=== PATIENT | male | born 1995 | race Caucasian/White ===

== ENCOUNTER 2018-08-08 15:47 | Emergency (ER) | payer MEDICAID ==
[~2018-08-08] VITALS: Ht 182.9 cm; Wt 55.0 kg
[~2018-08-08 15:47] MED LIST: CITA20TA19; trazadone
[2018-08-08] MEDS ORDERED: ACETAMINOPHEN 325MG TABLET PO STA (16:01)
[2018-08-08] MEDS ORDERED: LORAZEPAM 2MG/ML CPJ IV STA (16:01)
[2018-08-08] MEDS ORDERED: SODIUM CHLORIDE 0.9% 1,000 ML IV ONE (16:01)
[2018-08-08 17:08] LABS: BASOPHILS % 0.1 % (0.0-2.0); EOSINOPHILS % 0.1 % (0.0-5.0); HEMATOCRIT. 41.6 % (42.0-52.0); HEMOGLOBIN. 14.5 g/dL (14.0-18.0); LYMPHOCYTES % 7.1 % (20.0-50.0); MEAN CORPUSCULAR HEMOGLOBIN 32.7 pg (28.0-32.0); MEAN CORPUSCULAR VOLUME 93.7 fL (80.0-94.0); MEAN PLATELET VOLUME 8.5 fl (7.4-10.4); NEUTROPHILS % 89.7 % (40.0-76.0); PLATELET 208 x1000/uL (130-400); RED BLOOD CELL COUNT 4.44 mill/uL (4.7-6.1); RED CELL DISTRIBUTION WIDTH 12.7 % (11.6-14.6)
[2018-08-08 17:11] LABS: CHLORIDE 106 mEq/L (98-107)
[2018-08-08 17:16] LABS: ETHANOL BLOOD < 10 mg/dL
[2018-08-08 20:06] LABS: CLARITY URINE CLEAR (CLEAR); COLOR URINE YELLOW (YELLOW); KETONES URINE NEGATIVE (NEGATIVE); LEUKOCYTE ESTERASE URINE NEGATIVE (NEGATIVE); NITRITE URINE NEGATIVE (NEGATIVE); OCCULT BLOOD URINE NEGATIVE (NEGATIVE); PH URINE 7.5 (4.5-8.0); PROTEIN URINE NEGATIVE (NEGATIVE); SPECIFIC GRAVITY URINE 1.013 (1.005-1.030); UROBILINOGEN URINE 0.2 E.U./dL (0.2-1.0)
[2018-08-08 20:18] LABS: *AMPHETAMINES SCREEN URINE NEGATIVE (NEGATIVE); *BARBITURATES SCREEN URINE NEGATIVE (NEGATIVE); *BENZODIAZEPINES SCREEN URINE NEGATIVE (NEGATIVE)
[2018-08-08 20:19] LABS: *COCAINE SCREEN URINE NEGATIVE (NEGATIVE); CANNABINOID URINE SCREEN PRESUMTIVE POSITIVE (NEGATIVE); METHADONE URINE SCREEN NEGATIVE (NEGATIVE); OPIATES URINE SCREEN NEGATIVE (NEGATIVE); PHENCYCLIDINE URINE SCREEN NEGATIVE (NEGATIVE)
[2018-08-09 14:15] VITALS: BP 126/78
== END 2018-08-09 14:30 ==
LOC: ER 15:47
DX: T40.7X2A Poisoning by cannabis (derivatives), intentional self-harm, initial encounter (principal); R45.851 Suicidal ideations; R11.10 Vomiting, unspecified; F41.9 Anxiety disorder, unspecified; F32.9 Major depressive disorder, single episode, unspecified; R42 Dizziness and giddiness; Y92.89 Other specified places as the place of occurrence of the external cause
CPT/HCPCS: 36415; 71045; 80053; 80305; 80307; 80320; 80329; 81003; 85025; 96361; 96374; 99285; J2060; J7030; G0480

== ENCOUNTER 2019-10-25 14:24 | Emergency (ER) | payer SELFPAY ==
[~2019-10-25] VITALS: Ht 172.7 cm; Wt 64.0 kg
[2019-10-25] MEDS ORDERED: HALOPERIDOL LACTATE 5MG/ML VIAL IM STA (14:42)
[2019-10-25] MEDS ORDERED: LORAZEPAM 2MG/ML CPJ IM STA (14:42)
[2019-10-25 15:14] LABS: HEMOGLOBIN. 17.6 g/dL (14.0-18.0); MEAN CORPUSCULAR HEMOGLOBIN 33.1 pg (28.0-32.0); MEAN CORPUSCULAR VOLUME 95.9 fL (80.0-94.0); MEAN PLATELET VOLUME 9.5 fl (7.4-10.4); PLATELET 292 x1000/uL (130-400); RED BLOOD CELL COUNT 5.33 mill/uL (4.7-6.1); RED CELL DISTRIBUTION WIDTH 12.8 % (11.6-14.6)
[2019-10-25 15:17] LABS: CHLORIDE 104 mEq/L (98-107)
[2019-10-25 15:22] LABS: ETHANOL BLOOD < 10 mg/dL
[2019-10-25] MEDS ORDERED: SODIUM CHLORIDE 0.9% 1,000 ML IV ONE (16:00)
[2019-10-25 17:20] LABS: CLARITY URINE CLEAR (CLEAR); COLOR URINE DARK YELLOW (YELLOW); KETONES URINE TRACE (NEGATIVE); LEUKOCYTE ESTERASE URINE TRACE (NEGATIVE); NITRITE URINE NEGATIVE (NEGATIVE); OCCULT BLOOD URINE 3+ (NEGATIVE); PH URINE 5.5 (4.5-8.0); PROTEIN URINE 2+ (NEGATIVE); SPECIFIC GRAVITY URINE 1.022 (1.005-1.030)
[2019-10-25 17:44] LABS: *AMPHETAMINES SCREEN URINE NEGATIVE (NEGATIVE); *BARBITURATES SCREEN URINE NEGATIVE (NEGATIVE); *BENZODIAZEPINES SCREEN URINE NEGATIVE (NEGATIVE)
[2019-10-25 17:45] LABS: *COCAINE SCREEN URINE NEGATIVE (NEGATIVE); CANNABINOID URINE SCREEN PRESUMTIVE POSITIVE (NEGATIVE); METHADONE URINE SCREEN NEGATIVE (NEGATIVE); OPIATES URINE SCREEN PRESUMTIVE POSITIVE (NEGATIVE); PHENCYCLIDINE URINE SCREEN PRESUMTIVE POSITIVE (NEGATIVE)
[2019-10-25 20:18] LABS: PLATELET ESTIMATE NORMAL
[2019-10-26 15:30] VITALS: BP 128/83
== END 2019-10-26 15:50 | disposition home or self-care (01) ==
LOC: ER 14:33
DX: R45.1 Restlessness and agitation (principal); F41.9 Anxiety disorder, unspecified; F32.9 Major depressive disorder, single episode, unspecified; F12.10 Cannabis abuse, uncomplicated
CPT/HCPCS: 36415; 80053; 80305; 80307; 80320; 80329; 81003; 85025; 96372; 99285; J1630; J2060; J7030; G0480

== ENCOUNTER 2021-01-25 23:34 | Emergency (ER) | payer MEDICAID ==
[~2021-01-25] VITALS: Ht 170.2 cm; Wt 73.0 kg
[2021-01-26] MEDS ORDERED: SODIUM CHLORIDE 0.9% 1,000 ML IV ONE
[2021-01-26 00:25] LABS: BASOPHILS % 0.4 % (0.0-2.0); EOSINOPHILS % 0.1 % (0.0-5.0); HEMOGLOBIN. 14.9 g/dL (14.0-18.0); LYMPHOCYTES % 15.6 % (20.0-50.0); MEAN CORPUSCULAR HEMOGLOBIN 32.8 pg (28.0-32.0); MEAN CORPUSCULAR VOLUME 92.7 fL (80.0-94.0); MEAN PLATELET VOLUME 9.1 fl (7.4-10.4); MONOCYTES % 3.2 % (2.0-8.0); NEUTROPHILS % 80.7 % (40.0-76.0); PLATELET 235 x1000/uL (130-400); RED BLOOD CELL COUNT 4.53 mill/uL (4.7-6.1); RED CELL DISTRIBUTION WIDTH 12.7 % (11.6-14.6)
[2021-01-26] MEDS ORDERED: ONDANSETRON HCL 4MG/2ML INJ IV ONE (00:45)
[2021-01-26 01:02] LABS: CHLORIDE 104 mEq/L (98-107)
[2021-01-26 01:09] LABS: ETHANOL BLOOD < 10 mg/dL
[2021-01-26 01:11] LABS: CLARITY URINE CLEAR (CLEAR); COLOR URINE YELLOW (YELLOW); KETONES URINE NEGATIVE (NEGATIVE); LEUKOCYTE ESTERASE URINE NEGATIVE (NEGATIVE); NITRITE URINE NEGATIVE (NEGATIVE); OCCULT BLOOD URINE NEGATIVE (NEGATIVE); PH URINE 7.5 (4.5-8.0); PROTEIN URINE NEGATIVE (NEGATIVE); SPECIFIC GRAVITY URINE 1.021 (1.005-1.030)
[2021-01-26 01:12] LABS: CREATINE KINASE 93 IU/L (39-308)
[2021-01-26 01:48] LABS: *AMPHETAMINES SCREEN URINE NEGATIVE (NEGATIVE)
[2021-01-26 01:49] LABS: *BARBITURATES SCREEN URINE NEGATIVE (NEGATIVE); *BENZODIAZEPINES SCREEN URINE NEGATIVE (NEGATIVE); *COCAINE SCREEN URINE NEGATIVE (NEGATIVE); METHADONE URINE SCREEN NEGATIVE (NEGATIVE); OPIATES URINE SCREEN NEGATIVE (NEGATIVE); PHENCYCLIDINE URINE SCREEN NEGATIVE (NEGATIVE)
[2021-01-26 01:50] LABS: CANNABINOID URINE SCREEN PRESUMTIVE POSITIVE (NEGATIVE)
[2021-01-26 02:33] LABS: CHLORIDE 108 mEq/L (98-107)
[2021-01-26] MEDS: OLANZAPINE 5MG TABLET ODT PO SCH ×2 (09:13→17:10)
[2021-01-26] MEDS ORDERED: DIPHENHYDRAMINE 50MG/ML VIAL IM STA (20:32)
[2021-01-26] MEDS ORDERED: HALOPERIDOL LACTATE 5MG/ML VIAL IM STA (20:32)
[2021-01-26] MEDS ORDERED: LORAZEPAM 2MG/ML CPJ IM STA (20:32)
[2021-01-27] MEDS: OLANZAPINE 5MG TABLET ODT PO SCH (09:39)
[2021-01-27 15:00] VITALS: BP 134/86
== END 2021-01-27 16:00 | disposition home or self-care (01) ==
LOC: ER 23:34
DX: T65.91XA Toxic effect of unspecified substance, accidental (unintentional), initial encounter (principal); F12.90 Cannabis use, unspecified, uncomplicated; R45.851 Suicidal ideations; I49.9 Cardiac arrhythmia, unspecified; Z20.822 Contact with and (suspected) exposure to COVID-19; Y92.9 Unspecified place or not applicable
CPT/HCPCS: 93005; 96372; 96374; 99285; J1200; J1630; J2060; J2405; J7030

== ENCOUNTER 2021-01-30 12:18 | Inpatient (IN) | payer MEDICAID ==
[~2021-01-30] VITALS: Ht 182.9 cm; Wt 57.8 kg
[~2021-01-30 12:18] MED LIST changes: +ETOMIDATE 2MG/ML 10ML VIAL IV ONE; +SODIUM CHLORIDE 0.9% 10ML VIAL ONE; +VECURONIUM BROMIDE 10 MG/VIAL IV ONE
[2021-01-30] MEDS ORDERED: LORAZEPAM 2MG/ML CPJ IV STA (12:42)
[2021-01-30] MEDS ORDERED: SODIUM CHLORIDE 0.9% 1,000 ML IV ONE ×2 (12:45→19:15)
[2021-01-30] MEDS ORDERED: NALOXONE HCL 0.4 MG/ML 1ML VIAL IV PRN (12:45)
[2021-01-30] MEDS ORDERED: PROPOFOL 10MG/ML 100ML 100 ML IV ONE (13:00)
[2021-01-30] MEDS ORDERED: LORAZEPAM 2MG/ML CPJ IV ONE (13:00)
[2021-01-30] MEDS ORDERED: LEVETIRACETAM 500MG PREMIX 100 ML IV ONE (13:00)
[2021-01-30] MEDS ORDERED: FENTANYL CITRATE/PF 1,000 MCG in SODIUM CHLORIDE 0.9% 80 ML IV PRN (13:00)
[2021-01-30] MEDS ORDERED: LEVETIRACETAM 2,000 MG in SODIUM CHLORIDE 0.9% 100 ML IV NR (13:00)
[2021-01-30] MEDS ORDERED: ETOMIDATE 2MG/ML 10ML VIAL IV ONE (13:00)
[2021-01-30] MEDS ORDERED: VANCOMYCIN 1 G PREMIX 200 ML IV SCH (13:15)
[2021-01-30] MEDS ORDERED: PIPERACILLIN/TAZOBACTAM 3.375GM/50ML PREMIX IV NR (13:15)
[2021-01-30 13:43] LABS: HEMATOCRIT. 47.1 % (42.0-52.0); HEMOGLOBIN. 15.9 g/dL (14.0-18.0); MEAN CORPUSCULAR HEMOGLOBIN 32.3 pg (28.0-32.0); MEAN CORPUSCULAR VOLUME 95.6 fL (80.0-94.0); MEAN PLATELET VOLUME 9.7 fl (7.4-10.4); PLATELET 163 x1000/uL (130-400); RED BLOOD CELL COUNT 4.93 mill/uL (4.7-6.1); RED CELL DISTRIBUTION WIDTH 12.9 % (11.6-14.6)
[2021-01-30 13:49] LABS: CLARITY URINE CLEAR (CLEAR); COLOR URINE YELLOW (YELLOW); KETONES URINE TRACE (NEGATIVE); LEUKOCYTE ESTERASE URINE NEGATIVE (NEGATIVE); NITRITE URINE NEGATIVE (NEGATIVE); OCCULT BLOOD URINE 3+ (NEGATIVE); PH URINE 5.5 (4.5-8.0); PROTEIN URINE 1+ (NEGATIVE); SPECIFIC GRAVITY URINE 1.011 (1.005-1.030)
[2021-01-30 14:17] LABS: PLATELET ESTIMATE NORMAL
[2021-01-30 14:19] LABS: CHLORIDE 102 mEq/L (98-107)
[2021-01-30 14:20] LABS: INR 1.2
[2021-01-30 14:24] LABS: ETHANOL BLOOD < 10 mg/dL
[2021-01-30 14:27] LABS: LDL CHOLESTEROL 82 mg/dL (5-100)
[2021-01-30 14:28] LABS: HDL CHOLESTEROL 52 mg/dL (40-59)
[2021-01-30] MEDS ORDERED: FUROSEMIDE 100MG/10ML VIAL IV STA (14:34)
[2021-01-30 14:42] LABS: OPIATES URINE SCREEN NEGATIVE (NEGATIVE); PHENCYCLIDINE URINE SCREEN NEGATIVE (NEGATIVE)
[2021-01-30 14:43] LABS: *AMPHETAMINES SCREEN URINE NEGATIVE (NEGATIVE); *BARBITURATES SCREEN URINE NEGATIVE (NEGATIVE); *BENZODIAZEPINES SCREEN URINE NEGATIVE (NEGATIVE); *COCAINE SCREEN URINE NEGATIVE (NEGATIVE); CANNABINOID URINE SCREEN PRESUMTIVE POSITIVE (NEGATIVE); METHADONE URINE SCREEN NEGATIVE (NEGATIVE)
[2021-01-30] MEDS ORDERED: SODIUM CHLORIDE 0.9% 1000ML BAG (SEPSIS BOLUS) IV ONE (14:45)
[2021-01-30] MEDS ORDERED: ALBUTEROL (0.083%) 2.5MG/3ML NEB HHN ONE (14:45)
[2021-01-30] MEDS ORDERED: CALCIUM GLUCONATE 100MG/ML 10ML VIAL IV ONE (14:45)
[2021-01-30] MEDS ORDERED: INSULIN REGULAR (HUMULIN R) 300UNITS/3ML VIAL IV ONE (14:45)
[2021-01-30] MEDS ORDERED: CALCIUM CHLORIDE 1GM/10ML SYR IV ONE (14:45)
[2021-01-30] MEDS ORDERED: DEXTROSE 50% WATER 50ML SYRINGE IV ONE (14:45)
[2021-01-30] MEDS ORDERED: PIPERACILLIN/TAZOBACTAM 3.375 G in DEXTROSE 5% WATER 50 ML IV SCH (15:45)
[2021-01-30] MEDS ORDERED: PROPOFOL 10MG/ML 100ML 100 ML IV PRN (16:00)
[2021-01-30] MEDS: ENOXAPARIN 30MG/0.3ML SYR SUBCUT SCH (16:00)
[2021-01-30] MEDS: PANTOPRAZOLE SODIUM 40 MG/VIAL IV SCH (17:55)
[2021-01-30] MEDS: DEXT 5%/0.45% NACL 1000ML 1,000 ML IV SCH (17:56)
[2021-01-30 18:04] LABS: BG BASE EXCESS -7.2 mmol/L (-2.0-2.0); BG CARBOXYHEMOGLOBIN 0.3 % (0.5-1.5); BG DEOXYHEMOGLOBIN 0.4 % (0.0-5.0); BG FRACTION INSPIRED OXYGEN 18; BG HCO3 ACT 21.5 mmol/L (22.0-26.0); BG METHEMOGLOBIN 0.6 % (0.0-1.5); BG OXYGEN SATURATION 99.6 % (92.0-98.5); BG OXYHEMOGLOBIN 98.7 % (94.0-97.0); BG PCO2 55.2 mmHg (35.0-45.0); BG PH 7.209 (7.350-7.450); BG PO2 471.1 mmHg (75.0-100.0); BG SAMPLE SITE RIGHT RADIAL; BG TOTAL HEMOGLOBIN 17.4 g/dL (12.0-18.0); BG VENT MODE VENT - AC
[2021-01-30 18:08] LABS: CHLORIDE 103 mEq/L (98-107)
[2021-01-30] MEDS ORDERED: FENTANYL CITRATE/PF 50MCG/ML 2ML VIAL IV ONE (19:45)
[2021-01-30] MEDS ORDERED: FENTANYL CITRATE 2,500 MCG in SODIUM CHLORIDE 0.9% 200 ML IV PRN (19:45)
[2021-01-30 20:05] LABS: CREATINE KINASE 7600 IU/L (39-308)
[2021-01-30 21:28] LABS: HEPATITIS B SURFACE ANTIGEN NEGATIVE
[2021-01-30] MEDS ORDERED: SODIUM CHLORIDE 0.9% 100 ML IV ONE (22:30)
[2021-01-30] MEDS ORDERED: LEVETIRACETAM 500MG PREMIX 100 ML IV NR (23:00)
[2021-01-30] MEDS ORDERED: KETOROLAC 15MG/ML VIAL IV PRN (23:05)
[2021-01-30] MEDS: SODIUM BICARBONATE 100 MEQ in SODIUM CHLORIDE 0.45% 1,000 ML IV SCH (23:09)
[2021-01-30] MEDS: PIPERACILLIN/TAZOBACTAM 3.375G in DEXT 5% WATER 50ML IV SCH (23:09)
[2021-01-31] VITALS (61 sets, daily range): BP systolic 52–129; BP diastolic 27–118
[2021-01-31] MEDS: PHENYLEPHRINE 100 MG in DEXT 5% WATER 250 ML IV PRN (00:23)
[2021-01-31 00:33] LABS: CREATINE KINASE 4143 IU/L (39-308)
[2021-01-31] MEDS: DEXT 5%/0.45% NACL 1000ML 1,000 ML IV SCH ×2 (04:00→13:04)
[2021-01-31] MEDS: SODIUM BICARBONATE 100 MEQ in SODIUM CHLORIDE 0.45% 1,000 ML IV SCH (04:20)
[2021-01-31] MEDS: PIPERACILLIN/TAZOBACTAM 3.375G in DEXT 5% WATER 50ML IV SCH ×3 (06:28→22:40)
[2021-01-31] MEDS ORDERED: PROPOFOL 10MG/ML 100ML 100 ML IV ONE (07:00)
[2021-01-31] MEDS: PANTOPRAZOLE SODIUM 40 MG/VIAL IV SCH (09:44)
[2021-01-31 10:01] LABS: HEMATOCRIT. 39.2 % (42.0-52.0); HEMOGLOBIN. 13.9 g/dL (14.0-18.0); MEAN CORPUSCULAR HEMOGLOBIN 32.2 pg (28.0-32.0); MEAN CORPUSCULAR VOLUME 91.1 fL (80.0-94.0); MEAN PLATELET VOLUME 8.9 fl (7.4-10.4); PLATELET 151 x1000/uL (130-400); RED BLOOD CELL COUNT 4.31 mill/uL (4.7-6.1)
[2021-01-31 10:10] LABS: CHLORIDE 105 mEq/L (98-107)
[2021-01-31 10:42] LABS: PLATELET ESTIMATE NORMAL
[2021-01-31 10:56] LABS: BG BASE EXCESS 6.3 mmol/L (-2.0-2.0); BG CARBOXYHEMOGLOBIN 0.3 % (0.5-1.5); BG DEOXYHEMOGLOBIN 1.2 % (0.0-5.0); BG FRACTION INSPIRED OXYGEN 50; BG HCO3 ACT 31.1 mmol/L (22.0-26.0); BG METHEMOGLOBIN 0.6 % (0.0-1.5); BG OXYGEN SATURATION 98.8 % (92.0-98.5); BG OXYHEMOGLOBIN 97.9 % (94.0-97.0); BG PH 7.457 (7.350-7.450); BG PO2 195.9 mmHg (75.0-100.0); BG SAMPLE SITE LEFT RADIAL; BG TOTAL HEMOGLOBIN 13.7 g/dL (12.0-18.0); BG TOTAL RESPIRATORY RATE 18 b/min; BG VENT MODE VENT - AC
[2021-01-31] MEDS ORDERED: LEVETIRACETAM 500 MG in SODIUM CHLORIDE 0.9% 100 ML IV SCH (11:00)
[2021-01-31] MEDS: LEVETIRACETAM 500MG PREMIX 100 ML IV SCH ×2 (12:32→20:43)
[2021-01-31 12:42] LABS: CREATINE KINASE 7887 IU/L (39-308)
[2021-01-31] MEDS: CHLORDIAZEPOXIDE 10MG CAPSULE PO SCH ×2 (13:02→22:25)
[2021-01-31] MEDS: THIAMINE HCL 100MG TABLET PO SCH (13:03)
[2021-01-31] MEDS: MULTIVITAMINS,THER W-MINERALS TABLET PO SCH (13:03)
[2021-01-31] MEDS: FOLIC ACID 1MG TABLET PO SCH (13:03)
[2021-01-31] MEDS: CHLORDIAZEPOXIDE 5 MG CAPSULE PO SCH ×2 (13:03→22:25)
[2021-01-31] MEDS: ENOXAPARIN 30MG/0.3ML SYR SUBCUT SCH (18:09)
[2021-01-31] MEDS: PROPOFOL 10MG/ML 100ML 100 ML IV PRN (18:11)
[2021-02-01] VITALS (91 sets, daily range): BP systolic 75–148; BP diastolic 16–96
[2021-02-01] MEDS: DEXT 5%/0.45% NACL 1000ML 1,000 ML IV SCH ×3 (00:49→18:45)
[2021-02-01] MEDS: CHLORDIAZEPOXIDE 5 MG CAPSULE PO SCH ×3 (05:50→21:50)
[2021-02-01] MEDS: CHLORDIAZEPOXIDE 10MG CAPSULE PO SCH ×3 (05:50→21:50)
[2021-02-01] MEDS: PIPERACILLIN/TAZOBACTAM 3.375G in DEXT 5% WATER 50ML IV SCH ×3 (05:51→21:51)
[2021-02-01] MEDS: PROPOFOL 10MG/ML 100ML 100 ML IV PRN ×3 (07:41→20:25)
[2021-02-01 08:06] LABS: HEMATOCRIT. 37.2 % (42.0-52.0); HEMOGLOBIN. 13.3 g/dL (14.0-18.0); MEAN CORPUSCULAR HEMOGLOBIN 32.9 pg (28.0-32.0); MEAN CORPUSCULAR VOLUME 92.2 fL (80.0-94.0); MEAN PLATELET VOLUME 10.6 fl (7.4-10.4); PLATELET 130 x1000/uL (130-400); RED BLOOD CELL COUNT 4.04 mill/uL (4.7-6.1); RED CELL DISTRIBUTION WIDTH 12.8 % (11.6-14.6)
[2021-02-01 08:09] LABS: CHLORIDE 108 mEq/L (98-107)
[2021-02-01] MEDS: FOLIC ACID 1MG TABLET PO SCH (08:36)
[2021-02-01] MEDS: MULTIVITAMINS,THER W-MINERALS TABLET PO SCH (08:36)
[2021-02-01] MEDS: PANTOPRAZOLE SODIUM 40 MG/VIAL IV SCH (08:36)
[2021-02-01] MEDS: THIAMINE HCL 100MG TABLET PO SCH (08:36)
[2021-02-01] MEDS: LEVETIRACETAM 500MG PREMIX 100 ML IV SCH ×2 (08:36→20:26)
[2021-02-01 08:46] LABS: CREATINE KINASE 6125 IU/L (39-308)
[2021-02-01 09:21] LABS: BG BASE EXCESS 0.5 mmol/L (-2.0-2.0); BG CARBOXYHEMOGLOBIN 0.3 % (0.5-1.5); BG DEOXYHEMOGLOBIN 0.9 % (0.0-5.0); BG FRACTION INSPIRED OXYGEN 505; BG HCO3 ACT 25.2 mmol/L (22.0-26.0); BG METHEMOGLOBIN 0.4 % (0.0-1.5); BG OXYGEN SATURATION 99.1 % (92.0-98.5); BG OXYHEMOGLOBIN 98.4 % (94.0-97.0); BG PCO2 40.8 mmHg (35.0-45.0); BG PH 7.409 (7.350-7.450); BG SAMPLE SITE LEFT RADIAL; BG TOTAL HEMOGLOBIN 13.8 g/dL (12.0-18.0); BG TOTAL RESPIRATORY RATE 18 b/min; BG VENT MODE VENT - AC
[2021-02-01] MEDS: ACETAMINOPHEN 325MG TABLET PO PRN (10:08)
[2021-02-01 11:45] LABS: PLATELET ESTIMATE NORMAL
[2021-02-01] MEDS: ENOXAPARIN 30MG/0.3ML SYR SUBCUT SCH (16:57)
[2021-02-02] VITALS (79 sets, daily range): BP systolic 90–162; BP diastolic 40–112
[2021-02-02] MEDS: ACETAMINOPHEN 325MG TABLET PO PRN ×2 (00:01→17:32)
[2021-02-02] MEDS: FENTANYL CITRATE/PF 2,500 MCG in SODIUM CHLORIDE 0.9% 200 ML IV PRN ×2 (01:55→20:55)
[2021-02-02] MEDS: PROPOFOL 10MG/ML 100ML 100 ML IV PRN ×2 (02:19→08:16)
[2021-02-02] MEDS: DEXT 5%/0.45% NACL 1000ML 1,000 ML IV SCH ×2 (03:09→17:05)
[2021-02-02] MEDS: PIPERACILLIN/TAZOBACTAM 3.375G in DEXT 5% WATER 50ML IV SCH ×3 (05:25→21:32)
[2021-02-02] MEDS: CHLORDIAZEPOXIDE 5 MG CAPSULE PO SCH ×4 (05:25→21:50)
[2021-02-02] MEDS: CHLORDIAZEPOXIDE 10MG CAPSULE PO SCH ×2 (05:26→13:17)
[2021-02-02 05:30] LABS: HEMATOCRIT. 41.8 % (42.0-52.0); HEMOGLOBIN. 14.7 g/dL (14.0-18.0); MEAN CORPUSCULAR HEMOGLOBIN 32.7 pg (28.0-32.0); MEAN CORPUSCULAR VOLUME 93.1 fL (80.0-94.0); MEAN PLATELET VOLUME 9.3 fl (7.4-10.4); PLATELET 149 x1000/uL (130-400); RED BLOOD CELL COUNT 4.49 mill/uL (4.7-6.1); RED CELL DISTRIBUTION WIDTH 12.9 % (11.6-14.6)
[2021-02-02 05:39] LABS: CHLORIDE 109 mEq/L (98-107)
[2021-02-02 05:59] LABS: PHOSPHORUS 3.9 mg/dL (2.5-4.9)
[2021-02-02 06:15] LABS: CREATINE KINASE 2317 IU/L (39-308)
[2021-02-02] MEDS: THIAMINE HCL 100MG TABLET PO SCH (08:08)
[2021-02-02] MEDS: PANTOPRAZOLE SODIUM 40 MG/VIAL IV SCH (08:08)
[2021-02-02] MEDS: FOLIC ACID 1MG TABLET PO SCH (08:08)
[2021-02-02] MEDS: MULTIVITAMINS,THER W-MINERALS TABLET PO SCH (08:08)
[2021-02-02] MEDS: LEVETIRACETAM 500MG PREMIX 100 ML IV SCH ×2 (08:09→20:06)
[2021-02-02 10:15] LABS: BG CARBOXYHEMOGLOBIN 0.4 % (0.5-1.5); BG DEOXYHEMOGLOBIN 1.8 % (0.0-5.0); BG FRACTION INSPIRED OXYGEN 40; BG HCO3 ACT 26.6 mmol/L (22.0-26.0); BG METHEMOGLOBIN 0.3 % (0.0-1.5); BG OXYGEN SATURATION 98.2 % (92.0-98.5); BG OXYHEMOGLOBIN 97.5 % (94.0-97.0); BG PCO2 50.7 mmHg (35.0-45.0); BG PH 7.337 (7.350-7.450); BG PO2 114.3 mmHg (75.0-100.0); BG SAMPLE SITE LEFT RADIAL; BG TOTAL HEMOGLOBIN 13.9 g/dL (12.0-18.0); BG TOTAL RESPIRATORY RATE 14 b/min; BG VENT MODE VENT - AC
[2021-02-02 12:42] LABS: PLATELET ESTIMATE NORMAL
[2021-02-02] MEDS ORDERED: LIDOCAINE HCL 1% 20ML VIAL (Pyxis) INJ ONE (13:40)
[2021-02-02] MEDS: ENOXAPARIN 30MG/0.3ML SYR SUBCUT SCH (16:00)
[2021-02-02] MEDS ORDERED: CHLORDIAZEPOXIDE 10MG CAPSULE PO SCH (22:00)
[2021-02-03] VITALS (89 sets, daily range): BP systolic 85–149; BP diastolic 39–105
[2021-02-03] MEDS: ACETAMINOPHEN 325MG TABLET PO PRN (00:11)
[2021-02-03] MEDS: PHENYLEPHRINE 100 MG in DEXT 5% WATER 250 ML IV PRN (03:09)
[2021-02-03] MEDS: PIPERACILLIN/TAZOBACTAM 3.375G in DEXT 5% WATER 50ML IV SCH ×3 (05:16→21:30)
[2021-02-03] MEDS: CHLORDIAZEPOXIDE 5 MG CAPSULE PO SCH (05:17)
[2021-02-03] MEDS: DEXT 5%/0.45% NACL 1000ML 1,000 ML IV SCH (05:18)
[2021-02-03 05:31] LABS: CHLORIDE 105 mEq/L (98-107)
[2021-02-03 05:44] LABS: PHOSPHORUS 3.6 mg/dL (2.5-4.9)
[2021-02-03 05:57] LABS: CREATINE KINASE 1554 IU/L (39-308)
[2021-02-03 08:24] LABS: BG BASE EXCESS -0.3 mmol/L (-2.0-2.0); BG CARBOXYHEMOGLOBIN 0.6 % (0.5-1.5); BG HCO3 ACT 25.9 mmol/L (22.0-26.0); BG METHEMOGLOBIN 0.4 % (0.0-1.5); BG PCO2 48.5 mmHg (35.0-45.0); BG PH 7.346 (7.350-7.450); BG PO2 107.5 mmHg (75.0-100.0); BG SAMPLE SITE RIGHT RADIAL; BG TOTAL HEMOGLOBIN 13.8 g/dL (12.0-18.0); BG VENT MODE VENT - AC
[2021-02-03] MEDS: PANTOPRAZOLE SODIUM 40 MG/VIAL IV SCH (09:21)
[2021-02-03] MEDS: MULTIVITAMINS,THER W-MINERALS TABLET PO SCH (09:21)
[2021-02-03] MEDS: FOLIC ACID 1MG TABLET PO SCH (09:21)
[2021-02-03] MEDS: LEVETIRACETAM 500MG PREMIX 100 ML IV SCH ×2 (09:21→20:41)
[2021-02-03] MEDS: THIAMINE HCL 100MG TABLET PO SCH (09:21)
[2021-02-03 10:05] LABS: HEMATOCRIT. 38.3 % (42.0-52.0); HEMOGLOBIN. 13.3 g/dL (14.0-18.0); MEAN CORPUSCULAR VOLUME 91.9 fL (80.0-94.0); MEAN PLATELET VOLUME 8.5 fl (7.4-10.4); PLATELET 158 x1000/uL (130-400); RED BLOOD CELL COUNT 4.17 mill/uL (4.7-6.1); RED CELL DISTRIBUTION WIDTH 12.7 % (11.6-14.6)
[2021-02-03] MEDS ORDERED: FLUMAZENIL 0.1 MG/ML 5ML VIAL IV SCH (11:15)
[2021-02-03] MEDS: ACETYLCYSTEINE 100MG/ML 10% VIAL 4ML INH SCH (12:38)
[2021-02-03] MEDS: IPRATROPIUM/ALBUTEROL 0.5-3(2.5)MG/3ML NEB HHN SCH ×3 (12:39→20:20)
[2021-02-03 14:31] LABS: PLATELET ESTIMATE NORMAL
[2021-02-03] MEDS: ENOXAPARIN 30MG/0.3ML SYR SUBCUT SCH (16:37)
[2021-02-03] MEDS: LORAZEPAM 2MG/ML CPJ IV PRN ×2 (19:38→23:38)
[2021-02-03] MEDS: ONDANSETRON HCL 4MG/2ML INJ IV PRN (20:50)
[2021-02-04] VITALS (74 sets, daily range): BP systolic 106–155; BP diastolic 51–105
[2021-02-04] MEDS: IPRATROPIUM/ALBUTEROL 0.5-3(2.5)MG/3ML NEB HHN SCH ×6 (00:27→20:12)
[2021-02-04] MEDS: ACETYLCYSTEINE 100MG/ML 10% VIAL 4ML INH SCH ×3 (00:27→16:50)
[2021-02-04] MEDS: LORAZEPAM 2MG/ML CPJ IV PRN ×2 (03:53→18:46)
[2021-02-04] MEDS: ACETAMINOPHEN 325MG TABLET PO PRN ×3 (04:12→17:17)
[2021-02-04 04:58] LABS: HEMATOCRIT. 39.7 % (42.0-52.0); HEMOGLOBIN. 13.7 g/dL (14.0-18.0); MEAN CORPUSCULAR HEMOGLOBIN 31.9 pg (28.0-32.0); MEAN CORPUSCULAR VOLUME 92.5 fL (80.0-94.0); MEAN PLATELET VOLUME 8.4 fl (7.4-10.4); PLATELET 194 x1000/uL (130-400); RED BLOOD CELL COUNT 4.29 mill/uL (4.7-6.1); RED CELL DISTRIBUTION WIDTH 12.7 % (11.6-14.6)
[2021-02-04 05:00] LABS: CHLORIDE 105 mEq/L (98-107)
[2021-02-04 05:06] LABS: PHOSPHORUS 2.4 mg/dL (2.5-4.9)
[2021-02-04] MEDS: PIPERACILLIN/TAZOBACTAM 3.375G in DEXT 5% WATER 50ML IV SCH ×2 (05:56→14:20)
[2021-02-04] MEDS ORDERED: POTASSIUM PHOS,M-BASIC-D-BASIC 20 MMOL in DEXT 5% WATER 243.3333 ML IV ONE (06:15)
[2021-02-04] MEDS: PANTOPRAZOLE SODIUM 40 MG/VIAL IV SCH (08:03)
[2021-02-04] MEDS: MULTIVITAMINS,THER W-MINERALS TABLET PO SCH (08:03)
[2021-02-04] MEDS: FOLIC ACID 1MG TABLET PO SCH (08:03)
[2021-02-04] MEDS: THIAMINE HCL 100MG TABLET PO SCH (08:03)
[2021-02-04] MEDS: LEVETIRACETAM 500MG PREMIX 100 ML IV SCH ×2 (08:03→22:23)
[2021-02-04 09:27] LABS: PLATELET ESTIMATE NORMAL
[2021-02-04] MEDS: ENOXAPARIN 40MG/0.4ML SYR SUBCUT SCH (14:23)
[2021-02-04] MEDS: CEFEPIME 1,000 MG in DEXTROSE 5% WATER 50 ML IV SCH (16:00)
[2021-02-04 16:53] LABS: CLARITY URINE CLEAR (CLEAR); COLOR URINE YELLOW (YELLOW); KETONES URINE NEGATIVE (NEGATIVE); LEUKOCYTE ESTERASE URINE NEGATIVE (NEGATIVE); NITRITE URINE NEGATIVE (NEGATIVE); OCCULT BLOOD URINE 1+ (NEGATIVE); PROTEIN URINE TRACE (NEGATIVE); SPECIFIC GRAVITY URINE 1.019 (1.005-1.030)
[2021-02-04] MEDS: VANCOMYCIN 1 G PREMIX 200 ML IV SCH (17:17)
[2021-02-04] MEDS: DOXYCYCLINE HYCLATE 100MG CAPSULE PO SCH (21:52)
[2021-02-04] MEDS: METRONIDAZOLE 500MG TABLET PO SCH (21:52)
[2021-02-05] VITALS (55 sets, daily range): BP systolic 118–147; BP diastolic 56–95
[2021-02-05] MEDS: ACETYLCYSTEINE 100MG/ML 10% VIAL 4ML INH SCH ×3 (00:02→16:03)
[2021-02-05] MEDS: IPRATROPIUM/ALBUTEROL 0.5-3(2.5)MG/3ML NEB HHN SCH ×6 (00:02→20:28)
[2021-02-05] MEDS: VANCOMYCIN 1 G PREMIX 200 ML IV SCH ×3 (00:03→16:47)
[2021-02-05] MEDS: ACETAMINOPHEN 325MG TABLET PO PRN ×2 (00:03→08:28)
[2021-02-05] MEDS: CEFEPIME 1,000 MG in DEXTROSE 5% WATER 50 ML IV SCH ×2 (04:33→16:47)
[2021-02-05 06:01] LABS: CHLORIDE 105 mEq/L (98-107)
[2021-02-05 06:02] LABS: HEMATOCRIT. 39.9 % (42.0-52.0); HEMOGLOBIN. 14.2 g/dL (14.0-18.0); MEAN CORPUSCULAR HEMOGLOBIN 32.6 pg (28.0-32.0); MEAN CORPUSCULAR VOLUME 91.9 fL (80.0-94.0); MEAN PLATELET VOLUME 8.5 fl (7.4-10.4); PLATELET 254 x1000/uL (130-400); RED BLOOD CELL COUNT 4.35 mill/uL (4.7-6.1); RED CELL DISTRIBUTION WIDTH 12.8 % (11.6-14.6)
[2021-02-05 06:12] LABS: CREATINE KINASE 410 IU/L (39-308)
[2021-02-05] MEDS ORDERED: POTASSIUM CHLORIDE 20MEQ/PACKET PO SCH (08:00)
[2021-02-05 08:55] LABS: BG BASE EXCESS 3.6 mmol/L (-2.0-2.0); BG CARBOXYHEMOGLOBIN 0.3 % (0.5-1.5); BG DEOXYHEMOGLOBIN 1.8 % (0.0-5.0); BG HCO3 ACT 27.4 mmol/L (22.0-26.0); BG METHEMOGLOBIN 0.3 % (0.0-1.5); BG OXYGEN SATURATION 98.2 % (92.0-98.5); BG OXYHEMOGLOBIN 97.6 % (94.0-97.0); BG PCO2 38.8 mmHg (35.0-45.0); BG PH 7.467 (7.350-7.450); BG PO2 108.3 mmHg (75.0-100.0); BG SAMPLE SITE RIGHT RADIAL; BG TOTAL HEMOGLOBIN 15.3 g/dL (12.0-18.0); BG VENT MODE VENT - AC
[2021-02-05] MEDS: MULTIVITAMINS,THER W-MINERALS TABLET PO SCH (09:20)
[2021-02-05] MEDS: DOXYCYCLINE HYCLATE 100MG CAPSULE PO SCH ×2 (09:20→22:23)
[2021-02-05] MEDS: FOLIC ACID 1MG TABLET PO SCH (09:21)
[2021-02-05] MEDS: THIAMINE HCL 100MG TABLET PO SCH (09:21)
[2021-02-05] MEDS: PANTOPRAZOLE SODIUM 40 MG/VIAL IV SCH (09:21)
[2021-02-05] MEDS: METRONIDAZOLE 500MG TABLET PO SCH ×2 (09:21→22:22)
[2021-02-05 09:34] LABS: PLATELET ESTIMATE NORMAL
[2021-02-05] MEDS: LEVETIRACETAM 500MG PREMIX 100 ML IV SCH ×2 (09:42→22:22)
[2021-02-05] MEDS: ENOXAPARIN 40MG/0.4ML SYR SUBCUT SCH (13:36)
[2021-02-06] VITALS (48 sets, daily range): BP systolic 54–145; BP diastolic 28–89
[2021-02-06] MEDS: VANCOMYCIN 1 G PREMIX 200 ML IV SCH (00:21)
[2021-02-06] MEDS: ACETAMINOPHEN 325MG TABLET PO PRN ×3 (00:21→20:09)
[2021-02-06] MEDS: ACETYLCYSTEINE 100MG/ML 10% VIAL 4ML INH SCH ×3 (01:18→16:21)
[2021-02-06] MEDS: IPRATROPIUM/ALBUTEROL 0.5-3(2.5)MG/3ML NEB HHN SCH ×6 (01:19→20:12)
[2021-02-06] MEDS: CEFEPIME 1,000 MG in DEXTROSE 5% WATER 50 ML IV SCH ×2 (04:36→18:18)
[2021-02-06 04:55] LABS: HEMATOCRIT. 39.6 % (42.0-52.0); HEMOGLOBIN. 14.2 g/dL (14.0-18.0); MEAN CORPUSCULAR HEMOGLOBIN 32.9 pg (28.0-32.0); MEAN CORPUSCULAR VOLUME 92.2 fL (80.0-94.0); PLATELET 304 x1000/uL (130-400); RED CELL DISTRIBUTION WIDTH 12.7 % (11.6-14.6)
[2021-02-06 04:58] LABS: CHLORIDE 104 mEq/L (98-107)
[2021-02-06 05:05] LABS: PHOSPHORUS 3.4 mg/dL (2.5-4.9)
[2021-02-06] MEDS: ONDANSETRON HCL 4MG/2ML INJ IV PRN (08:22)
[2021-02-06 09:06] LABS: PLATELET ESTIMATE NORMAL
[2021-02-06] MEDS: PANTOPRAZOLE SODIUM 40 MG/VIAL IV SCH (09:21)
[2021-02-06] MEDS: LEVETIRACETAM 500MG PREMIX 100 ML IV SCH ×2 (09:21→20:09)
[2021-02-06] MEDS: DOXYCYCLINE HYCLATE 100MG CAPSULE PO SCH ×2 (09:21→20:09)
[2021-02-06] MEDS: METRONIDAZOLE 500MG TABLET PO SCH ×2 (09:21→20:09)
[2021-02-06] MEDS: THIAMINE HCL 100MG TABLET PO SCH (09:22)
[2021-02-06] MEDS: FOLIC ACID 1MG TABLET PO SCH (09:22)
[2021-02-06] MEDS: MULTIVITAMINS,THER W-MINERALS TABLET PO SCH (09:22)
[2021-02-06 09:23] LABS: BG CARBOXYHEMOGLOBIN 0.3 % (0.5-1.5); BG DEOXYHEMOGLOBIN 3.6 % (0.0-5.0); BG METHEMOGLOBIN 0.2 % (0.0-1.5); BG OXYGEN SATURATION 96.4 % (92.0-98.5); BG OXYHEMOGLOBIN 95.9 % (94.0-97.0); BG PCO2 39.6 mmHg (35.0-45.0); BG PH 7.452 (7.350-7.450); BG PO2 85.5 mmHg (75.0-100.0); BG SAMPLE SITE RIGHT BRACHIAL; BG TOTAL HEMOGLOBIN 16.2 g/dL (12.0-18.0); BG VENT MODE VENT - AC
[2021-02-06] MEDS ORDERED: VANCOMYCIN 750 MG PREMIX 150 ML IV SCH (10:00)
[2021-02-06] MEDS: ENOXAPARIN 40MG/0.4ML SYR SUBCUT SCH (14:29)
[2021-02-06] MEDS: VANCOMYCIN 750 MG PREMIX 150 ML IV SCH (22:06)
[2021-02-07] VITALS (49 sets, daily range): BP systolic 94–157; BP diastolic 42–129
[2021-02-07] MEDS: ONDANSETRON HCL 4MG/2ML INJ IV PRN (00:13)
[2021-02-07] MEDS: IPRATROPIUM/ALBUTEROL 0.5-3(2.5)MG/3ML NEB HHN SCH ×6 (00:22→20:06)
[2021-02-07] MEDS: ACETYLCYSTEINE 100MG/ML 10% VIAL 4ML INH SCH ×3 (00:22→16:10)
[2021-02-07] MEDS: CEFEPIME 1,000 MG in DEXTROSE 5% WATER 50 ML IV SCH ×2 (03:46→15:00)
[2021-02-07] MEDS: VANCOMYCIN 750 MG PREMIX 150 ML IV SCH ×3 (05:21→22:21)
[2021-02-07 05:22] LABS: HEMATOCRIT. 39.1 % (42.0-52.0); HEMOGLOBIN. 13.9 g/dL (14.0-18.0); MEAN CORPUSCULAR VOLUME 90.3 fL (80.0-94.0); MEAN PLATELET VOLUME 7.9 fl (7.4-10.4); PLATELET 352 x1000/uL (130-400); RED BLOOD CELL COUNT 4.33 mill/uL (4.7-6.1); RED CELL DISTRIBUTION WIDTH 12.8 % (11.6-14.6)
[2021-02-07 05:37] LABS: CHLORIDE 102 mEq/L (98-107)
[2021-02-07] MEDS: PANTOPRAZOLE SODIUM 40 MG/VIAL IV SCH (08:26)
[2021-02-07] MEDS: MULTIVITAMINS,THER W-MINERALS TABLET PO SCH (08:27)
[2021-02-07] MEDS: THIAMINE HCL 100MG TABLET PO SCH (08:27)
[2021-02-07] MEDS: FOLIC ACID 1MG TABLET PO SCH (08:27)
[2021-02-07] MEDS: LEVETIRACETAM 500MG PREMIX 100 ML IV SCH ×2 (08:27→21:26)
[2021-02-07] MEDS: METRONIDAZOLE 500MG TABLET PO SCH ×2 (08:27→21:25)
[2021-02-07] MEDS: DOXYCYCLINE HYCLATE 100MG CAPSULE PO SCH ×2 (08:27→21:25)
[2021-02-07 08:45] LABS: BG BASE EXCESS -0.4 mmol/L (-2.0-2.0); BG CARBOXYHEMOGLOBIN 0.3 % (0.5-1.5); BG DEOXYHEMOGLOBIN 1.6 % (0.0-5.0); BG FRACTION INSPIRED OXYGEN 30; BG HCO3 ACT 23.3 mmol/L (22.0-26.0); BG METHEMOGLOBIN 0.1 % (0.0-1.5); BG OXYGEN SATURATION 98.4 % (92.0-98.5); BG PCO2 35.8 mmHg (35.0-45.0); BG PH 7.431 (7.350-7.450); BG PO2 128.4 mmHg (75.0-100.0); BG SAMPLE SITE RIGHT RADIAL; BG TOTAL HEMOGLOBIN 17.2 g/dL (12.0-18.0); BG VENT MODE VENT - AC
[2021-02-07 10:09] LABS: PLATELET ESTIMATE NORMAL
[2021-02-07] MEDS: ENOXAPARIN 40MG/0.4ML SYR SUBCUT SCH (13:51)
[2021-02-07] MEDS: LORAZEPAM 2MG/ML CPJ IV PRN (21:26)
[2021-02-08] VITALS (47 sets, daily range): BP systolic 100–154; BP diastolic 43–95
[2021-02-08] MEDS: IPRATROPIUM/ALBUTEROL 0.5-3(2.5)MG/3ML NEB HHN SCH ×7 (00:10→23:57)
[2021-02-08] MEDS: ACETYLCYSTEINE 100MG/ML 10% VIAL 4ML INH SCH ×3 (00:11→15:12)
[2021-02-08] MEDS: LORAZEPAM 2MG/ML CPJ IV PRN ×2 (03:00→08:32)
[2021-02-08] MEDS: CEFEPIME 1,000 MG in DEXTROSE 5% WATER 50 ML IV SCH ×2 (04:23→16:27)
[2021-02-08] MEDS: VANCOMYCIN 750 MG PREMIX 150 ML IV SCH ×3 (05:46→22:17)
[2021-02-08 06:11] LABS: HEMATOCRIT. 39.9 % (42.0-52.0); MEAN CORPUSCULAR HEMOGLOBIN 32.1 pg (28.0-32.0); MEAN CORPUSCULAR VOLUME 91.6 fL (80.0-94.0); MEAN PLATELET VOLUME 7.8 fl (7.4-10.4); PLATELET 499 x1000/uL (130-400); RED BLOOD CELL COUNT 4.36 mill/uL (4.7-6.1); RED CELL DISTRIBUTION WIDTH 12.7 % (11.6-14.6)
[2021-02-08 06:20] LABS: CHLORIDE 104 mEq/L (98-107)
[2021-02-08 08:09] LABS: BG BASE EXCESS 1.8 mmol/L (-2.0-2.0); BG CARBOXYHEMOGLOBIN 0.1 % (0.5-1.5); BG DEOXYHEMOGLOBIN 0.8 % (0.0-5.0); BG HCO3 ACT 24.7 mmol/L (22.0-26.0); BG METHEMOGLOBIN 0.3 % (0.0-1.5); BG OXYGEN SATURATION 99.2 % (92.0-98.5); BG OXYHEMOGLOBIN 98.8 % (94.0-97.0); BG PCO2 33.5 mmHg (35.0-45.0); BG PH 7.485 (7.350-7.450); BG PO2 216.1 mmHg (75.0-100.0); BG SAMPLE SITE RIGHT RADIAL; BG TOTAL HEMOGLOBIN 14.2 g/dL (12.0-18.0); BG VENT MODE VENT - AC
[2021-02-08] MEDS: MULTIVITAMINS,THER W-MINERALS TABLET PO SCH (08:32)
[2021-02-08] MEDS: THIAMINE HCL 100MG TABLET PO SCH (08:32)
[2021-02-08] MEDS: METRONIDAZOLE 500MG TABLET PO SCH ×2 (08:32→20:47)
[2021-02-08] MEDS: FOLIC ACID 1MG TABLET PO SCH (08:32)
[2021-02-08] MEDS: LEVETIRACETAM 500MG PREMIX 100 ML IV SCH ×2 (08:32→20:47)
[2021-02-08] MEDS: PANTOPRAZOLE SODIUM 40 MG/VIAL IV SCH (08:32)
[2021-02-08] MEDS: DOXYCYCLINE HYCLATE 100MG CAPSULE PO SCH ×2 (08:32→20:47)
[2021-02-08 13:20] LABS: BG BASE EXCESS 2.8 mmol/L (-2.0-2.0); BG CARBOXYHEMOGLOBIN 0.1 % (0.5-1.5); BG HCO3 ACT 26.4 mmol/L (22.0-26.0); BG METHEMOGLOBIN 0.4 % (0.0-1.5); BG OXYHEMOGLOBIN 98.5 % (94.0-97.0); BG PCO2 37.4 mmHg (35.0-45.0); BG PH 7.466 (7.350-7.450); BG PO2 172.3 mmHg (75.0-100.0); BG SAMPLE SITE RIGHT RADIAL; BG VENT MODE VENT - CPAP
[2021-02-08] MEDS ORDERED: MORPHINE SULFATE 2 MG/ML CPJ (NOT FOR IM USE) IV PRN (13:30)
[2021-02-08] MEDS: ENOXAPARIN 40MG/0.4ML SYR SUBCUT SCH (14:25)
[2021-02-08 16:19] LABS: PLATELET ESTIMATE INCREASED
[2021-02-09] VITALS (36 sets, daily range): BP systolic 103–142; BP diastolic 39–82
[2021-02-09] MEDS: CEFEPIME 1,000 MG in DEXTROSE 5% WATER 50 ML IV SCH ×2 (04:22→16:46)
[2021-02-09] MEDS: VANCOMYCIN 750 MG PREMIX 150 ML IV SCH ×3 (06:12→21:55)
[2021-02-09] MEDS ORDERED: NALOXONE HCL 0.4MG/ML VIAL IV PRN (07:45)
[2021-02-09] MEDS: LEVETIRACETAM 500MG PREMIX 100 ML IV SCH ×2 (08:15→20:03)
[2021-02-09] MEDS: METRONIDAZOLE 500MG TABLET PO SCH ×2 (08:16→20:14)
[2021-02-09] MEDS: PANTOPRAZOLE SODIUM 40 MG/VIAL IV SCH (08:16)
[2021-02-09] MEDS: FOLIC ACID 1MG TABLET PO SCH (08:16)
[2021-02-09] MEDS: DOXYCYCLINE HYCLATE 100MG CAPSULE PO SCH ×2 (08:16→20:14)
[2021-02-09] MEDS: MULTIVITAMINS,THER W-MINERALS TABLET PO SCH (08:16)
[2021-02-09] MEDS: THIAMINE HCL 100MG TABLET PO SCH (08:16)
[2021-02-09] MEDS: IPRATROPIUM/ALBUTEROL 0.5-3(2.5)MG/3ML NEB HHN SCH ×4 (08:56→21:10)
[2021-02-09] MEDS: ENOXAPARIN 40MG/0.4ML SYR SUBCUT SCH (14:39)
[2021-02-10] VITALS (12 sets, daily range): BP systolic 103–144; BP diastolic 56–77
[2021-02-10] MEDS: IPRATROPIUM/ALBUTEROL 0.5-3(2.5)MG/3ML NEB HHN SCH ×6 (00:06→21:04)
[2021-02-10 07:58] LABS: HEMATOCRIT. 40.1 % (42.0-52.0); MEAN CORPUSCULAR HEMOGLOBIN 32.4 pg (28.0-32.0); MEAN CORPUSCULAR VOLUME 92.8 fL (80.0-94.0); MEAN PLATELET VOLUME 7.9 fl (7.4-10.4); PLATELET 632 x1000/uL (130-400); RED BLOOD CELL COUNT 4.32 mill/uL (4.7-6.1); RED CELL DISTRIBUTION WIDTH 12.6 % (11.6-14.6)
[2021-02-10 08:06] LABS: CHLORIDE 102 mEq/L (98-107)
[2021-02-10] MEDS: THIAMINE HCL 100MG TABLET PO SCH (09:29)
[2021-02-10] MEDS: PANTOPRAZOLE SODIUM 40 MG/VIAL IV SCH (09:29)
[2021-02-10] MEDS: MULTIVITAMINS,THER W-MINERALS TABLET PO SCH (09:29)
[2021-02-10] MEDS: LEVETIRACETAM 500MG PREMIX 100 ML IV SCH ×2 (09:29→20:31)
[2021-02-10] MEDS: FOLIC ACID 1MG TABLET PO SCH (09:29)
[2021-02-10 10:59] LABS: PLATELET ESTIMATE INCREASED
[2021-02-10] MEDS: ENOXAPARIN 40MG/0.4ML SYR SUBCUT SCH (13:48)
[2021-02-11] VITALS (13 sets, daily range): BP systolic 85–136; BP diastolic 57–79
[2021-02-11] MEDS: IPRATROPIUM/ALBUTEROL 0.5-3(2.5)MG/3ML NEB HHN SCH ×6 (00:40→20:25)
[2021-02-11] MEDS: FOLIC ACID 1MG TABLET PO SCH (09:47)
[2021-02-11] MEDS: MULTIVITAMINS,THER W-MINERALS TABLET PO SCH (09:47)
[2021-02-11] MEDS: THIAMINE HCL 100MG TABLET PO SCH (09:47)
[2021-02-11] MEDS: LEVETIRACETAM 500MG TABLET PO SCH ×2 (09:47→21:09)
[2021-02-11] MEDS: FAMOTIDINE 20MG TABLET PO SCH ×2 (10:03→21:09)
[2021-02-11] MEDS: ENOXAPARIN 40MG/0.4ML SYR SUBCUT SCH (14:01)
[2021-02-12] VITALS (12 sets, daily range): BP systolic 93–121; BP diastolic 36–76
[2021-02-12] MEDS: IPRATROPIUM/ALBUTEROL 0.5-3(2.5)MG/3ML NEB HHN SCH ×5 (00:10→20:32)
[2021-02-12] MEDS: THIAMINE HCL 100MG TABLET PO SCH (09:00)
[2021-02-12] MEDS: FOLIC ACID 1MG TABLET PO SCH (09:00)
[2021-02-12] MEDS: FAMOTIDINE 20MG TABLET PO SCH ×2 (09:00→20:32)
[2021-02-12] MEDS: LEVETIRACETAM 500MG TABLET PO SCH ×2 (09:00→20:32)
[2021-02-12] MEDS: MULTIVITAMINS,THER W-MINERALS TABLET PO SCH (09:00)
[2021-02-12] MEDS: ENOXAPARIN 40MG/0.4ML SYR SUBCUT SCH (13:40)
[2021-02-13] VITALS (12 sets, daily range): BP systolic 93–121; BP diastolic 40–73
[2021-02-13] MEDS: IPRATROPIUM/ALBUTEROL 0.5-3(2.5)MG/3ML NEB HHN SCH ×6 (01:05→20:57)
[2021-02-13 05:33] LABS: BASOPHILS % 0.6 % (0.0-2.0); EOSINOPHILS % 1.5 % (0.0-5.0); HEMATOCRIT. 39.5 % (42.0-52.0); HEMOGLOBIN. 13.8 g/dL (14.0-18.0); LYMPHOCYTES % 23.4 % (20.0-50.0); MEAN CORPUSCULAR HEMOGLOBIN 32.2 pg (28.0-32.0); MEAN CORPUSCULAR VOLUME 92.4 fL (80.0-94.0); MEAN PLATELET VOLUME 7.9 fl (7.4-10.4); NEUTROPHILS % 68.5 % (40.0-76.0); PLATELET 838 x1000/uL (130-400); RED BLOOD CELL COUNT 4.27 mill/uL (4.7-6.1); RED CELL DISTRIBUTION WIDTH 12.7 % (11.6-14.6)
[2021-02-13 06:14] LABS: CHLORIDE 101 mEq/L (98-107)
[2021-02-13] MEDS: FOLIC ACID 1MG TABLET PO SCH (09:26)
[2021-02-13] MEDS: FAMOTIDINE 20MG TABLET PO SCH ×2 (09:26→21:55)
[2021-02-13] MEDS: MULTIVITAMINS,THER W-MINERALS TABLET PO SCH (09:26)
[2021-02-13] MEDS: LEVETIRACETAM 500MG TABLET PO SCH ×2 (09:26→21:57)
[2021-02-13] MEDS: THIAMINE HCL 100MG TABLET PO SCH (09:26)
[2021-02-13] MEDS: ENOXAPARIN 40MG/0.4ML SYR SUBCUT SCH (14:28)
[2021-02-14] VITALS (10 sets, daily range): BP systolic 83–114; BP diastolic 50–72
[2021-02-14] MEDS: IPRATROPIUM/ALBUTEROL 0.5-3(2.5)MG/3ML NEB HHN SCH ×6 (01:40→21:03)
[2021-02-14 04:54] LABS: BASOPHILS % 0.8 % (0.0-2.0); EOSINOPHILS % 0.8 % (0.0-5.0); HEMATOCRIT. 41.4 % (42.0-52.0); HEMOGLOBIN. 14.4 g/dL (14.0-18.0); MEAN CORPUSCULAR HEMOGLOBIN 32.3 pg (28.0-32.0); MEAN CORPUSCULAR VOLUME 92.9 fL (80.0-94.0); MEAN PLATELET VOLUME 8.3 fl (7.4-10.4); MONOCYTES % 3.6 % (2.0-8.0); NEUTROPHILS % 77.8 % (40.0-76.0); PLATELET 792 x1000/uL (130-400); RED BLOOD CELL COUNT 4.46 mill/uL (4.7-6.1); RED CELL DISTRIBUTION WIDTH 12.8 % (11.6-14.6)
[2021-02-14 06:48] LABS: CHLORIDE 102 mEq/L (98-107)
[2021-02-14] MEDS: FOLIC ACID 1MG TABLET PO SCH (09:27)
[2021-02-14] MEDS: LEVETIRACETAM 500MG TABLET PO SCH ×2 (09:27→20:44)
[2021-02-14] MEDS: FAMOTIDINE 20MG TABLET PO SCH ×2 (09:27→20:44)
[2021-02-14] MEDS: MULTIVITAMINS,THER W-MINERALS TABLET PO SCH (09:27)
[2021-02-14] MEDS: THIAMINE HCL 100MG TABLET PO SCH (09:27)
[2021-02-14] MEDS: ENOXAPARIN 40MG/0.4ML SYR SUBCUT SCH (15:04)
[2021-02-15] VITALS (7 sets, daily range): BP systolic 74–117; BP diastolic 36–71
[2021-02-15] MEDS: IPRATROPIUM/ALBUTEROL 0.5-3(2.5)MG/3ML NEB HHN SCH ×3 (00:56→09:28)
[2021-02-15] MEDS: MULTIVITAMINS,THER W-MINERALS TABLET PO SCH (09:36)
[2021-02-15] MEDS: THIAMINE HCL 100MG TABLET PO SCH (09:36)
[2021-02-15] MEDS: LEVETIRACETAM 500MG TABLET PO SCH ×2 (09:36→21:43)
[2021-02-15] MEDS: FAMOTIDINE 20MG TABLET PO SCH ×2 (09:36→21:43)
[2021-02-15] MEDS: FOLIC ACID 1MG TABLET PO SCH (09:36)
[2021-02-15] MEDS ORDERED: IPRATROPIUM/ALBUTEROL 0.5-3(2.5)MG/3ML NEB HHN PRN (11:30)
[2021-02-15] MEDS: ENOXAPARIN 40MG/0.4ML SYR SUBCUT SCH (13:47)
[2021-02-16 02:00] VITALS: BP 95/57
[2021-02-16 08:00] VITALS: BP 101/67
[2021-02-16] MEDS: MULTIVITAMINS,THER W-MINERALS TABLET PO SCH (09:55)
[2021-02-16] MEDS: LEVETIRACETAM 500MG TABLET PO SCH ×2 (09:55→22:07)
[2021-02-16] MEDS: FAMOTIDINE 20MG TABLET PO SCH ×2 (09:55→22:07)
[2021-02-16] MEDS: THIAMINE HCL 100MG TABLET PO SCH (09:55)
[2021-02-16] MEDS: FOLIC ACID 1MG TABLET PO SCH (09:55)
[2021-02-16 12:00] VITALS: BP 100/63
[2021-02-16] MEDS: ENOXAPARIN 40MG/0.4ML SYR SUBCUT SCH (14:45)
[2021-02-16 16:00] VITALS: BP 107/69
[2021-02-16] MEDS: LORAZEPAM 2MG/ML CPJ IV PRN (17:33)
[2021-02-16 20:00] VITALS: BP 107/69
[2021-02-17] VITALS (7 sets, daily range): BP systolic 94–111; BP diastolic 48–72
[2021-02-17] MEDS: LEVETIRACETAM 500MG TABLET PO SCH ×2 (09:46→21:16)
[2021-02-17] MEDS: FAMOTIDINE 20MG TABLET PO SCH ×2 (09:46→21:16)
[2021-02-17] MEDS: FOLIC ACID 1MG TABLET PO SCH (09:46)
[2021-02-17] MEDS: THIAMINE HCL 100MG TABLET PO SCH (09:46)
[2021-02-17] MEDS: MULTIVITAMINS,THER W-MINERALS TABLET PO SCH (09:46)
[2021-02-17] MEDS: ENOXAPARIN 40MG/0.4ML SYR SUBCUT SCH (14:06)
[2021-02-17] MEDS: FLUOXETINE HCL 10 MG CAPSULE PO SCH (17:51)
[2021-02-17] MEDS: LORAZEPAM 2MG/ML CPJ IV PRN (23:59)
[2021-02-18] VITALS (10 sets, daily range): BP systolic 96–116; BP diastolic 48–70
[2021-02-18 06:19] LABS: CHLORIDE 104 mEq/L (98-107)
[2021-02-18] MEDS: FLUOXETINE HCL 10 MG CAPSULE PO SCH (11:30)
[2021-02-18] MEDS: LEVETIRACETAM 500MG TABLET PO SCH ×2 (11:30→20:52)
[2021-02-18] MEDS: THIAMINE HCL 100MG TABLET PO SCH (11:30)
[2021-02-18] MEDS: FAMOTIDINE 20MG TABLET PO SCH ×2 (11:30→20:52)
[2021-02-18] MEDS: FOLIC ACID 1MG TABLET PO SCH (11:30)
[2021-02-18] MEDS: MULTIVITAMINS,THER W-MINERALS TABLET PO SCH (11:30)
[2021-02-18] MEDS: ENOXAPARIN 40MG/0.4ML SYR SUBCUT SCH (14:00)
[2021-02-18 17:07] LABS: BASOPHILS % 0.7 % (0.0-2.0); EOSINOPHILS % 1.1 % (0.0-5.0); HEMATOCRIT. 39.4 % (42.0-52.0); HEMOGLOBIN. 13.7 g/dL (14.0-18.0); LYMPHOCYTES % 28.4 % (20.0-50.0); MEAN CORPUSCULAR HEMOGLOBIN 32.4 pg (28.0-32.0); MEAN CORPUSCULAR VOLUME 92.9 fL (80.0-94.0); MEAN PLATELET VOLUME 8.6 fl (7.4-10.4); MONOCYTES % 5.2 % (2.0-8.0); NEUTROPHILS % 64.6 % (40.0-76.0); PLATELET 916 x1000/uL (130-400); RED BLOOD CELL COUNT 4.24 mill/uL (4.7-6.1); RED CELL DISTRIBUTION WIDTH 12.9 % (11.6-14.6)
[2021-02-19] VITALS: BP 102/67
[2021-02-19 04:30] VITALS: BP 118/65
[2021-02-19 08:00] VITALS: BP 97/53
[2021-02-19] MEDS: FLUOXETINE HCL 10 MG CAPSULE PO SCH (08:58)
[2021-02-19] MEDS: FAMOTIDINE 20MG TABLET PO SCH ×2 (08:59→20:47)
[2021-02-19] MEDS: LEVETIRACETAM 500MG TABLET PO SCH ×2 (08:59→20:47)
[2021-02-19] MEDS: FOLIC ACID 1MG TABLET PO SCH (08:59)
[2021-02-19] MEDS: THIAMINE HCL 100MG TABLET PO SCH (08:59)
[2021-02-19] MEDS: MULTIVITAMINS,THER W-MINERALS TABLET PO SCH (08:59)
[2021-02-19 09:36] LABS: HEMATOCRIT. 40.6 % (42.0-52.0); HEMOGLOBIN. 14.4 g/dL (14.0-18.0); MEAN CORPUSCULAR HEMOGLOBIN 32.9 pg (28.0-32.0); MEAN CORPUSCULAR VOLUME 92.5 fL (80.0-94.0); MEAN PLATELET VOLUME 8.2 fl (7.4-10.4); PLATELET 800 x1000/uL (130-400); RED BLOOD CELL COUNT 4.38 mill/uL (4.7-6.1); RED CELL DISTRIBUTION WIDTH 13.1 % (11.6-14.6)
[2021-02-19 09:46] LABS: CHLORIDE 103 mEq/L (98-107)
[2021-02-19 10:49] LABS: ATYPICAL LYMPHOCYTES 2; PLATELET ESTIMATE MARKEDLY INCREASED
[2021-02-19 11:49] VITALS: BP 104/57
[2021-02-19] MEDS: ENOXAPARIN 40MG/0.4ML SYR SUBCUT SCH (14:11)
[2021-02-19 16:00] VITALS: BP 100/60
[2021-02-19 20:51] VITALS: BP 107/57
[2021-02-20 04:00] VITALS: BP 108/55
[2021-02-20 08:00] VITALS: BP 92/56
[2021-02-20] MEDS: MULTIVITAMINS,THER W-MINERALS TABLET PO SCH (08:45)
[2021-02-20] MEDS: THIAMINE HCL 100MG TABLET PO SCH (08:45)
[2021-02-20] MEDS: FLUOXETINE HCL 10 MG CAPSULE PO SCH (08:45)
[2021-02-20] MEDS: FOLIC ACID 1MG TABLET PO SCH (08:45)
[2021-02-20] MEDS: FAMOTIDINE 20MG TABLET PO SCH ×2 (08:46→20:29)
[2021-02-20] MEDS: LEVETIRACETAM 500MG TABLET PO SCH ×2 (08:46→20:29)
[2021-02-20 12:00] VITALS: BP 104/56
[2021-02-20] MEDS: ENOXAPARIN 40MG/0.4ML SYR SUBCUT SCH (13:59)
[2021-02-20 16:00] VITALS: BP 102/56
[2021-02-20 20:00] VITALS: BP 111/59
[2021-02-20 23:50] VITALS: BP 98/66
[2021-02-21 04:00] VITALS: BP 101/57
[2021-02-21 08:00] VITALS: BP 97/62
[2021-02-21] MEDS: FLUOXETINE HCL 10 MG CAPSULE PO SCH (08:57)
[2021-02-21] MEDS: THIAMINE HCL 100MG TABLET PO SCH (08:57)
[2021-02-21] MEDS: LEVETIRACETAM 500MG TABLET PO SCH ×2 (08:57→21:18)
[2021-02-21] MEDS: FAMOTIDINE 20MG TABLET PO SCH ×2 (08:58→21:18)
[2021-02-21] MEDS: FOLIC ACID 1MG TABLET PO SCH (08:58)
[2021-02-21] MEDS: MULTIVITAMINS,THER W-MINERALS TABLET PO SCH (08:58)
[2021-02-21 12:00] VITALS: BP 95/65
[2021-02-21 16:00] VITALS: BP 98/58
[2021-02-21] MEDS: ENOXAPARIN 40MG/0.4ML SYR SUBCUT SCH (17:21)
[2021-02-21 20:00] VITALS: BP 97/58
[2021-02-22 04:00] VITALS: BP 111/59
[2021-02-22 08:00] VITALS: BP 127/78
[2021-02-22] MEDS: FOLIC ACID 1MG TABLET PO SCH (09:19)
[2021-02-22] MEDS: THIAMINE HCL 100MG TABLET PO SCH (09:19)
[2021-02-22] MEDS: LEVETIRACETAM 500MG TABLET PO SCH ×2 (09:19→21:01)
[2021-02-22] MEDS: FLUOXETINE HCL 10 MG CAPSULE PO SCH (09:19)
[2021-02-22] MEDS: MULTIVITAMINS,THER W-MINERALS TABLET PO SCH (09:19)
[2021-02-22] MEDS: FAMOTIDINE 20MG TABLET PO SCH ×2 (09:19→21:01)
[2021-02-22] MEDS: ENOXAPARIN 40MG/0.4ML SYR SUBCUT SCH (14:00)
[2021-02-22 20:00] VITALS: BP 110/60
[2021-02-23 00:02] VITALS: BP 112/72
[2021-02-23 04:20] VITALS: BP 102/60
[2021-02-23 07:58] VITALS: BP 102/65
[2021-02-23] MEDS: LEVETIRACETAM 500MG TABLET PO SCH ×2 (10:00→20:35)
[2021-02-23] MEDS: FAMOTIDINE 20MG TABLET PO SCH ×2 (10:00→20:35)
[2021-02-23] MEDS: MULTIVITAMINS,THER W-MINERALS TABLET PO SCH (10:00)
[2021-02-23] MEDS: THIAMINE HCL 100MG TABLET PO SCH (10:00)
[2021-02-23] MEDS: FLUOXETINE HCL 10 MG CAPSULE PO SCH (10:01)
[2021-02-23] MEDS: FOLIC ACID 1MG TABLET PO SCH (10:01)
[2021-02-23 12:04] VITALS: BP 93/53
[2021-02-23] MEDS: ENOXAPARIN 40MG/0.4ML SYR SUBCUT SCH (14:00)
[2021-02-23 16:00] VITALS: BP 103/60
[2021-02-23 20:00] VITALS: BP 99/58
[2021-02-24] VITALS: BP 101/61
[2021-02-24 04:00] VITALS: BP 105/60
[2021-02-24 08:00] VITALS: BP 102/53
[2021-02-24] MEDS: FOLIC ACID 1MG TABLET PO SCH (09:04)
[2021-02-24] MEDS: FAMOTIDINE 20MG TABLET PO SCH ×2 (09:04→20:29)
[2021-02-24] MEDS: MULTIVITAMINS,THER W-MINERALS TABLET PO SCH (09:04)
[2021-02-24] MEDS: THIAMINE HCL 100MG TABLET PO SCH (09:04)
[2021-02-24] MEDS: FLUOXETINE HCL 10 MG CAPSULE PO SCH (09:04)
[2021-02-24] MEDS: LEVETIRACETAM 500MG TABLET PO SCH ×2 (09:04→20:29)
[2021-02-24 10:16] LABS: CHLORIDE 104 mEq/L (98-107)
[2021-02-24 10:20] LABS: BASOPHILS % 0.9 % (0.0-2.0); HEMATOCRIT. 42.8 % (42.0-52.0); HEMOGLOBIN. 14.7 g/dL (14.0-18.0); MEAN CORPUSCULAR HEMOGLOBIN 32.6 pg (28.0-32.0); MEAN CORPUSCULAR VOLUME 95.1 fL (80.0-94.0); MEAN PLATELET VOLUME 9.7 fl (7.4-10.4); MONOCYTES % 3.9 % (2.0-8.0); NEUTROPHILS % 61.2 % (40.0-76.0); PLATELET 338 x1000/uL (130-400); RED BLOOD CELL COUNT 4.51 mill/uL (4.7-6.1); RED CELL DISTRIBUTION WIDTH 13.6 % (11.6-14.6)
[2021-02-24 12:00] VITALS: BP 97/52
[2021-02-24] MEDS: ENOXAPARIN 40MG/0.4ML SYR SUBCUT SCH (13:23)
[2021-02-24 16:00] VITALS: BP 102/65
[2021-02-24 20:00] VITALS: BP 96/52
[2021-02-25] VITALS: BP 105/46
[2021-02-25 04:00] VITALS: BP 102/51
[2021-02-25 08:00] VITALS: BP 98/59
[2021-02-25] MEDS: MULTIVITAMINS,THER W-MINERALS TABLET PO SCH (09:01)
[2021-02-25] MEDS: FAMOTIDINE 20MG TABLET PO SCH ×2 (09:01→20:52)
[2021-02-25] MEDS: THIAMINE HCL 100MG TABLET PO SCH (09:01)
[2021-02-25] MEDS: FOLIC ACID 1MG TABLET PO SCH (09:01)
[2021-02-25] MEDS: LEVETIRACETAM 500MG TABLET PO SCH ×2 (09:01→20:52)
[2021-02-25] MEDS: FLUOXETINE HCL 10 MG CAPSULE PO SCH (09:01)
[2021-02-25 12:00] VITALS: BP 110/58
[2021-02-25] MEDS: ENOXAPARIN 40MG/0.4ML SYR SUBCUT SCH (13:58)
[2021-02-25 16:00] VITALS: BP 108/64
[2021-02-25 20:00] VITALS: BP 112/67
[2021-02-26] VITALS: BP 107/59
[2021-02-26 04:00] VITALS: BP 100/52
[2021-02-26 08:13] VITALS: BP 111/72
[2021-02-26] MEDS: FOLIC ACID 1MG TABLET PO SCH (09:11)
[2021-02-26] MEDS: FAMOTIDINE 20MG TABLET PO SCH ×2 (09:11→20:44)
[2021-02-26] MEDS: LEVETIRACETAM 500MG TABLET PO SCH ×2 (09:11→20:44)
[2021-02-26] MEDS: THIAMINE HCL 100MG TABLET PO SCH (09:11)
[2021-02-26] MEDS: FLUOXETINE HCL 10 MG CAPSULE PO SCH (09:11)
[2021-02-26] MEDS: MULTIVITAMINS,THER W-MINERALS TABLET PO SCH (09:11)
[2021-02-26 12:00] VITALS: BP 102/62
[2021-02-26] MEDS: ENOXAPARIN 40MG/0.4ML SYR SUBCUT SCH (13:51)
[2021-02-26 16:00] VITALS: BP 93/62
[2021-02-26 20:00] VITALS: BP 99/59
[2021-02-27] VITALS: BP 96/52
[2021-02-27 04:00] VITALS: BP 100/58
[2021-02-27 08:01] VITALS: BP 102/59
[2021-02-27] MEDS: FLUOXETINE HCL 10 MG CAPSULE PO SCH (08:48)
[2021-02-27] MEDS: LEVETIRACETAM 500MG TABLET PO SCH ×2 (08:48→20:49)
[2021-02-27] MEDS: FAMOTIDINE 20MG TABLET PO SCH ×2 (08:48→20:49)
[2021-02-27] MEDS: MULTIVITAMINS,THER W-MINERALS TABLET PO SCH (08:48)
[2021-02-27] MEDS: FOLIC ACID 1MG TABLET PO SCH (08:49)
[2021-02-27] MEDS: THIAMINE HCL 100MG TABLET PO SCH (08:49)
[2021-02-27] MEDS: ENOXAPARIN 40MG/0.4ML SYR SUBCUT SCH (14:28)
[2021-02-27 16:00] VITALS: BP 102/69
[2021-02-27 20:00] VITALS: BP 103/62
[2021-02-28] VITALS: BP 93/55
[2021-02-28 04:00] VITALS: BP 95/52
[2021-02-28 07:59] VITALS: BP 104/67
[2021-02-28] MEDS: FOLIC ACID 1MG TABLET PO SCH (08:20)
[2021-02-28] MEDS: MULTIVITAMINS,THER W-MINERALS TABLET PO SCH (08:20)
[2021-02-28] MEDS: LEVETIRACETAM 500MG TABLET PO SCH ×2 (08:20→20:46)
[2021-02-28] MEDS: THIAMINE HCL 100MG TABLET PO SCH (08:21)
[2021-02-28] MEDS: FLUOXETINE HCL 10 MG CAPSULE PO SCH (08:21)
[2021-02-28] MEDS: FAMOTIDINE 20MG TABLET PO SCH ×2 (08:21→20:46)
[2021-02-28 11:59] VITALS: BP 109/59
[2021-02-28] MEDS: ENOXAPARIN 40MG/0.4ML SYR SUBCUT SCH (14:10)
[2021-02-28] MEDS: ACETAMINOPHEN WITH CODEINE 300/30MG TABLET PO PRN ×2 (15:29→22:07)
[2021-02-28 16:00] VITALS: BP 110/59
[2021-02-28 20:00] VITALS: BP 116/64
[2021-03-01] VITALS: BP 112/57
[2021-03-01 04:00] VITALS: BP 118/54
[2021-03-01 08:00] VITALS: BP 105/55
[2021-03-01] MEDS: FAMOTIDINE 20MG TABLET PO SCH ×2 (08:53→20:30)
[2021-03-01] MEDS: LEVETIRACETAM 500MG TABLET PO SCH ×2 (08:53→20:30)
[2021-03-01] MEDS: FLUOXETINE HCL 10 MG CAPSULE PO SCH (08:53)
[2021-03-01 12:00] VITALS: BP 112/64
[2021-03-01] MEDS: ENOXAPARIN 40MG/0.4ML SYR SUBCUT SCH (14:04)
[2021-03-01] MEDS: ACETAMINOPHEN WITH CODEINE 300/30MG TABLET PO PRN ×2 (14:05→20:31)
[2021-03-01 16:00] VITALS: BP 113/47
[2021-03-01 20:00] VITALS: BP 118/66
[2021-03-02] VITALS: BP 108/60
[2021-03-02 04:00] VITALS: BP 106/57
[2021-03-02] MEDS: ACETAMINOPHEN WITH CODEINE 300/30MG TABLET PO PRN ×3 (04:54→20:35)
[2021-03-02 08:00] VITALS: BP 111/70
[2021-03-02] MEDS: FAMOTIDINE 20MG TABLET PO SCH ×2 (09:22→20:35)
[2021-03-02] MEDS: FLUOXETINE HCL 10 MG CAPSULE PO SCH (09:22)
[2021-03-02] MEDS: LEVETIRACETAM 500MG TABLET PO SCH ×2 (09:22→20:35)
[2021-03-02 12:00] VITALS: BP 119/67
[2021-03-02] MEDS: ENOXAPARIN 40MG/0.4ML SYR SUBCUT SCH (13:04)
[2021-03-02 16:00] VITALS: BP 110/63
[2021-03-02 20:00] VITALS: BP 129/72
[2021-03-03] VITALS: BP 126/76
[2021-03-03 04:00] VITALS: BP 114/65
[2021-03-03 07:28] VITALS: BP 104/61
[2021-03-03] MEDS: LEVETIRACETAM 500MG TABLET PO SCH (08:27)
[2021-03-03] MEDS: FLUOXETINE HCL 10 MG CAPSULE PO SCH (08:27)
[2021-03-03] MEDS: FAMOTIDINE 20MG TABLET PO SCH (08:27)
[2021-03-03] MEDS ORDERED: NALOXONE HCL 0.4MG/ML VIAL IV PRN (10:00)
[2021-03-03 11:08] VITALS: BP 123/64
[2021-03-03] MEDS: ENOXAPARIN 40MG/0.4ML SYR SUBCUT SCH (14:30)
[2021-03-03 15:07] VITALS: BP 123/64
== END 2021-03-03 15:52 | DRG 720 ==
LOC: ER 12:23 → MICUSO 15:27 → MICUNO 01-31 07:44 → 5EST 02-09 16:09 → 6WST 02-22 22:30 → 6EST 03-03 09:33
PROVIDERS: ADMIT Hospitalist; ATTEND Hospitalist
PROC: 5A1955Z Respiratory Ventilation, Greater than 96 Consecutive Hours (ICD-10-PCS; principal; 2021-01-30)
PROC: 0BH17EZ Insertion of Endotracheal Airway into Trachea, Via Natural or Artificial Opening (ICD-10-PCS; 2021-01-30)
PROC: 02HV33Z Insertion of Infusion Device into Superior Vena Cava, Percutaneous Approach (ICD-10-PCS; 2021-01-30)
PROC: B548ZZA Ultrasonography of Superior Vena Cava, Guidance (ICD-10-PCS; 2021-01-30)
PROC: 5A1D70Z Performance of Urinary Filtration, Intermittent, Less than 6 Hours Per Day (ICD-10-PCS; 2021-01-30)
PROC: 05H533Z Insertion of Infusion Device into Right Subclavian Vein, Percutaneous Approach (ICD-10-PCS; 2021-02-02)
PROC: B546ZZA Ultrasonography of Right Subclavian Vein, Guidance (ICD-10-PCS; 2021-02-02)
PROC: 4A10X4Z Monitoring of Central Nervous Electrical Activity, External Approach (ICD-10-PCS; 2021-02-03)
DX: A41.1 Sepsis due to other specified staphylococcus (principal); J96.00 Acute respiratory failure, unspecified whether with hypoxia or hypercapnia; J69.0 Pneumonitis due to inhalation of food and vomit; G93.1 Anoxic brain damage, not elsewhere classified; I21.4 Non-ST elevation (NSTEMI) myocardial infarction; E87.2 Acidosis; G92.8 Other toxic encephalopathy; G40.901 Epilepsy, unspecified, not intractable, with status epilepticus; F33.2 Major depressive disorder, recurrent severe without psychotic features; M62.82 Rhabdomyolysis; N17.9 Acute kidney failure, unspecified; Z20.822 Contact with and (suspected) exposure to COVID-19; E87.5 Hyperkalemia; E78.1 Pure hyperglyceridemia; F25.9 Schizoaffective disorder, unspecified; R74.01 Elevation of levels of liver transaminase levels; Z79.899 Other long term (current) drug therapy
CPT/HCPCS: 36415; 36600; 70551; 71045; 73130; 76937; 80048; 80053; 80061; 80076; 80202; 80305; 80307; 80320; 80329; 81003; 82140; 82375; 82550; 82805; 83605; 83735; 84100; 84145; 84443; 84478; 84484; 85025; 86140; 86705; 86709; 86803; 87070; 87340; 87426; 87449; 92523; 92610; 93005; 93306; 94002; 94003; 94640; 95816; 97116; 97162; 97167; 97530; 99291; C1725; C1893; C9113; J0610; J0692; J1650; J1815; J1940; J1953; J2060; J2310; J2370; J2405; J2543; J2704; J3010; J3370; J3490; J7030; J7040; J7050; J7060; J7608; U0003; U0005; G0480